=== PATIENT | female | born 1985 | race Caucasian/White ===

== ENCOUNTER 2017-08-29 22:14 | Emergency (ER) | payer MEDICAID ==
[2017-08-29] MEDS ORDERED: MORPHINE SULFATE 4 MG/ML SYRG IV ONE (22:35)
--- NOTE | 2017-08-29 22:40 | ERNOTE ---
Abdominal HPI - Narrative Date of Service: 08/29/17 - General Chief Complaint: Abdominal Pain Time Seen by Provider: 08/29/17 22:27 Source: patient - Immun/Allergies/Home Medications Immunizatons: IMMUNIZATION HX Immunizations Up to Date Yes History of Influenza Vaccine Yes Hx Pneumococcal Vaccination No Allergies/Adverse Reactions: Allergies No Known Allergies Allergy (Verified 08/29/17 22:21) Home Medications: HOME MEDICATIONS Doxylamine Succinate [Unisom] 25 mg PO HS 08/29/17 [Last Taken Unknown] Levothyroxine Sodium [Synthroid] 175 mcg PO DAILY 08/29/17 [Last Taken Unknown] Loratadine [Claritin] 10 mg PO DAILY 08/29/17 [Last Taken Unknown] Pnv No.121/Iron/Folic Acid [ Multivitamin Tablet] 1 each PO DAILY [Last Taken Unknown] Pyridoxine HCl (Vitamin B6) [Vitamin B-6] 25 mg PO DAILY 08/29/17 [Last Taken Unknown] HYDROcodone/ACETAMINOPHEN [P[place]on 5-325] 1 each PO Q4H PRN #12 tablet 08/30/17 [ Last Taken Unknown] - History of Present Illness Narrative: This is a 31-year-old female who is 32 weeks with a girl. She has had full care. The patient comes in to the emergency department complaining of some abdominal pain primarily on the right side. This pain is superior into the flank. This pain going on since 2:00 today. About an hour ago the pain started radiating up to the shoulder. The pain is sharp. There is no new shortness of breath but she does report dyspnea during this last several months. She denies any fever or coughing. The pain is slightly pleuritic. When she breathes she holds her right inferior costal margin. She denies having vomiting she denies having blood in her stool or blood in her urine. Last week she had a pulled muscle in her pelvis and had a small amount of spotting but was seen at another hospital and that is since resolved. She has had no sputum production. She has never had pain like this in the past. She does feel the baby moving. Has been moving normally Review of Systems - Review of Systems Constitutional: Present: no symptoms reported EYE: Present: no symptoms reported ENT: Present: no symptoms reported Respiratory: Present: shortness of breath, other Cardiology: Present: chest pain Gastrointestinal/Abdominal: Present: abdominal pain - pleurisy Genitourinary: Present: no symptoms reported Musculoskeletal: Present: no symptoms reported Skin: Present: no symptoms reported Neurological: Present: no symptoms reported Endocrine: Present: no symptoms reported Hematologic/Lymphatic: Present: no symptoms reported Psych: Present: no symptoms reported All Other Systems: All systems neg except as marked - Patient's Past Medical History Patient History - Medical: Hypothyroidism Patient History - Cardiac/Respiratory: No pertinent hx Patient History - Cancer: No Hx of Cancer Patient History - Surgical Procedures: Other Patient History - Other: None - Social History Living Situations: home Abuse History: No History of abuse Psych History: No pertinent hx Smoking Status: Never smoker Have you smoked in the past 12 months: No Do you dip or chew tobacco: No Alcohol Use: none Drug Use: none - Immunizations Immunizations Up to Date: Yes Hx Pneumococcal Vaccination: No History of Influenza Vaccine: Yes Physical Exam - Physical Exam General Appearance: Present: wd/wn, alert, no apparent distress Head Exam: Present: normal inspection, no evidence of injury Eye Exam: Normal inspection: bilateral, PERRL: bilateral, EOMI: bilateral Ears, Nose, Throat: Present: normal ENT inspection, normal pharynx Neck: Present: normal inspection, nontender Respiratory: Present: no respiratory distress, normal breath sounds, no accessory muscle use, lungs clear Cardiovascular/Chest: Present: regular rate, rhythm, no murmur, other - patient is slightly tachycardic around 110 Gastrointestinal/Abdominal: Present: other - gravid uterus. 12 cm above umbilicus. She has no pain to palpation over the gallbladder fossa. No pain at McBurney's point. Back Exam: Present: normal inspection, normal range of motion, no CVA tenderness Extremity Exam: Present: normal inspection, non-tender, normal range of motion, no edema Neurological Exam: Present: alert, oriented, normal mood/affect, no motor/ sensory deficits Skin Exam: Present: normal color, warm/dry Lymphatic Exam: Present: no adenopathy ED Progress - Results and Orders Patient's Lab Results:: I have reviewed the patient's lab results. - Vital Signs Patient's Vital Signs:: I have reviewed the patient's vital signs. Vital Signs: Vital Signs 08/29/17 22:23 Temperature 37 C Pulse Rate 97 Respiratory 22 H Rate Blood Pressure 139/67 O2 Sat by Pulse 95 Oximetry - X-Ray X-Ray #1 X-Ray: chest Interpretation: Interp. by me X-ray Comments: Acute cardiopulmonary disease - CT/Ultrasound CT/Ultrasound Narrative: CT scan of the chest is suboptimal for evaluation of pulmonary emboli. Patient has scattered bilateral groundglass opacifications which could be microatelectasis, pneumonitis, or pulmonary edema. In this clinical setting microatelectasis is most likely. There is a 10 mm right lower lobe nodule - Progress/Reassessment Chief Complaint: Abdominal Pain Plan - Plan Plan: I discussed the case with Dr. Quigley from [facility]. He believes that this patient's clinical presentation is also not compatible with pulmonary embolism. He like the patient to be evaluated in OB. I discussed with the patient that her symptoms, while not classic for pulmonary embolism, could represent this. She is aware if she becomes severely short of breath, coughs up blood, develops a fever, or any new concerning symptoms, she should return immediately to the ER. She is willing to accept a tiny amount of risk with the fact that we could not exclude pulmonary embolism. The risks and benefits of anticoagulation far away not doing this in the patient. I would not anticoagulate unless the head extremely strong suspicion or diagnostic tests Departure Clinical Impression: Abdominal pain - Departure Disposition: Home self-care Condition: Stable Instructions: Abdominal Pain During , [id number] Additional Instructions: As we discussed the labs and tests done here in the ER could not identify a specific cause of her symptoms. This does not mean that there is nothing wrong , only that our tests have been unable to identify a cause. He may take the prescribed hydrocodone for severe pain. No driving or operating machinery while taking this. He should know that there is a 1 cm nodule in your right lower lung. This is not something that needs to be concerning at this time, but your family doctor should follow up on this in 6 months. Certainly if he develop vomiting, fever, bloody stool, blood in your coughing, severe shortness of breath, or any new concerning symptoms he should return to the ER immediately. Otherwise what you call your [facility] doctor tomorrow and see if he can get in to see them early next week Referrals: Veena Storm DO [Primary Care Provider] - Prescriptions: HYDROcodone/ACETAMINOPHEN [P[place]on 5-325] 1 each PO Q4H PRN #12 tablet PRN Reason: Pain
[2017-08-29] MEDS ORDERED: MORPHINE SULFATE 4 MG/ML SYRG ONE (22:45)
[2017-08-29] MEDS ORDERED: NORMAL SALINE 1,000 ML IV ONE (22:46)
[2017-08-29 22:54] LABS: Urine Bilirubin Negative (NEGATIVE); Urine Blood Negative /ul (NEGATIVE); Urine Ketone Negative (NEGATIVE); Urine Nitrite Negative (NEGATIVE); Urine Protein Negative (NEGATIVE); Urine Urobilinogen Normal (NORMAL); Urine pH 7.5 pH (5.0-7.0)
[2017-08-29 23:01] LABS: Hematocrit 31.7 % (37.0-47.0); Hemoglobin 10.8 gm/dL (12.5-16.0); Mean Cell Volume 84.5 fl (78-100); Mean Corpuscular Hemoglobin 28.8 pg (27-31); Mean Corpuscular Hgb Conc 34.1 g/dl (32-36); Mean Platelet Volume 10.9 fl (6.0-9.5); Neutrophil # 12.8 K/mm3 (1.3-6.0); Platelet Count 244 K/mm3 (150-450); Red Blood Count 3.75 M/mm3 (4.2-5.4); Red Cell Distribution Width 13.6 % (11.5-14.0); White Blood Count 15.5 K/mm3 (4.0-10.5)
[2017-08-29 23:10] LABS: Total Cells Counted 100
[2017-08-29 23:13] LABS: Urine Appearance Clear; Urine Color Yellow
[2017-08-29 23:14] LABS: Urine Amorphous Sediment Few - 1+ (NONE-FEW); Urine Bacteria TRACE; Urine RBC None Seen /hpf (0-5); Urine WBC None Seen /hpf (0-5)
[2017-08-29] MEDS ORDERED: HYDROmorphone HCL 1 MG/ML DISP.SYRIN IV ONE (23:18)
[2017-08-29 23:27] LABS: ALT 14 U/L (19-67); AST 15 U/L (0-48); Albumin * 2.7 gm/dl (3.4-5.0); Alkaline Phosphatase * 63 U/L (50-170); Anion Gap 17.7 mmol/L (6.8-13.8); BUN/Creatinine Ratio 9.8 (9.0-21.6); Bilirubin, Total 0.5 mg/dL (0.0-1.1); Blood Urea Nitrogen 5 mg/dL (3-23); Ca. Corrected For Albumin 9.3 mg/dL (8.4-10.2); Calcium * 8.6 mg/dL (7.9-10.9); Carbon Dioxide 23.7 mmol/L (24-32.6); Chloride 101 mmol/L (97-106); Glucose * 103 mg/dL (70-110); Potassium 3.4 mmol/L (3.4-4.6); Sodium 139 mmol/L (132-142); Total Protein 6.3 gm/dL (6.2-8.2); Troponin I Less than 0.017 ng/ml (0.00-0.10)
[2017-08-29 23:41] LABS: Neutrophil 78 % (42-75)
[2017-08-29 23:43] LABS: Band 5 % (0-2.0); Eosinophil 1 % (0-3); Immature Granulocyte 1 (0-1); Lymphocyte 6 % (20-51); Monocyte 9 % (0-9); Platelet Estimate Normal (NORMAL)
[2017-08-29 23:44] LABS: Giant Platelets Trace; Toxic Granulation 1+
[2017-08-29 23:45] LABS: Anisocytosis 1+; Microcytosis 1+
[2017-08-30] MEDS ORDERED: HYDROmorphone HCL 1 MG/ML DISP.SYRIN ONE (00:12)
[2017-08-30] MEDS ORDERED: NALOXONE HCL 1 MG/1 ML SYRG ONE (02:13)
[2017-08-30] MEDS ORDERED: NALOXONE HCL 1 MG/1 ML SYRG IV ONE (02:15)
[2017-08-30 03:15] VITALS: BP 114/65
== END 2017-08-30 03:07 | disposition home or self-care (01) ==
LOC: ER 22:14
DX: R10.9 Unspecified abdominal pain (principal); E03.9 Hypothyroidism, unspecified; Z33.1 Pregnant state, incidental; Z3A.32 32 weeks gestation of pregnancy